=== PATIENT | male | born 1965 | race Caucasian/White ===

== ENCOUNTER 2017-05-07 09:45 | Emergency (ER) | payer MEDICAID ==
[~2017-05-07] VITALS: Ht 170.2 cm; Wt 94.4 kg
[~2017-05-07 09:45] MED LIST: BACT800T5 PO
[2017-05-07 09:51] VITALS: BP 166/91; PULSE 73; RESP 16; TEMP 97.4; O2SAT 100
[2017-05-07] MEDS ORDERED: KETOROLAC TROMETHAMINE 30 MG/ML (IVP) VIAL IV PUSH ONE (10:30)
[2017-05-07] MEDS ORDERED: CLINDAMYCIN 600 MG PREMIX 50 ML IV ONE (10:30)
[2017-05-07 10:51] LABS: AUTOMATED NEUTROPHIL # 5.2 TH/MM3 (1.8-7.7); BASOPHIL % 0.4 % (0.0-2.0); EOSINOPHIL # 0.2 TH/MM3 (0-0.4); EOSINOPHIL % 2.8 % (0.0-4.0); HEMATOCRIT 50.5 % (39.0-51.0); LYMPH % 29.6 % (9.0-44.0); LYMPHOCYTE # 2.5 TH/MM3 (1.0-4.8); MEAN CELL VOLUME 93.7 FL (80.0-100.0); MEAN CORPUSCULAR HEMOGLOBIN 33.3 PG (27.0-34.0); MEAN CORPUSCULAR HGB CONC 35.5 % (32.0-36.0); MONO % 7.3 % (0.0-8.0); NEUT % 59.9 % (16.0-70.0); PLATELET COUNT 231 TH/MM3 (150-450); RED BLOOD COUNT 5.39 MIL/MM3 (4.50-5.90); RED CELL DISTRIBUTION WIDTH 13.4 % (11.6-17.2); WHITE BLOOD COUNT 8.5 TH/MM3 (4.0-11.0)
[2017-05-07 10:52] LABS: HEMO FLAGS DIFF FINAL
[2017-05-07 10:56] LABS: POTASSIUM 4.4 MEQ/L (3.5-5.1)
[2017-05-07 10:59] LABS: BICARBONATE 24.9 MEQ/L (21.0-32.0)
--- NOTE | 2017-05-07 11:05 | RADRPT ---
EXAM DATE/TIME: 05/07/2017 10:37 [place] COMPARISON: No previous studies available for comparison. INDICATIONS : Right foot pain; No known injury. MEDICAL HISTORY : None. SURGICAL HISTORY : None. ENCOUNTER: Initial ACUITY: 3 days PAIN SCORE: 10/10 LOCATION: Right dorsal surface; foot. FINDINGS: There is an acute minimally displaced fracture involving the base of the right fifth proximal phalanx with involvement of the articular surface. CONCLUSION: Acute minimally displaced fracture involving the base of the right fifth proximal phalanx with involv ement of the articular surface. Yohan Taylor MD on May 07, 2017 at 11:01 Board Certified Radiologist. This report was verified electronically.
--- NOTE | 2017-05-07 11:25 | PD ---
HPI Chief Complaint: Edema Time Seen by Provider: 10:20 Travel History International Travel<30 days: No Contact w/Intl Traveler<30days: No Traveled to known affect area: No History of Present Illness HPI 51yo M with no significant PMH presents to the ED with c/o right foot pain for a few days. Said he had swelling and redness on top of his foot. Denies any trauma or fall. Denies any fever, n/v, chest pain, sob, abdominal pain, focal weakness or numbness. He showed me a picture and the redness has actually improved. PFSH Past Medical History Blood Disorders: No Cancer: No Cardiomyopathy: No Cardiovascular Problems: No Diabetes: No Diminished Hearing: No Endocrine: No Gastrointestinal Disorders: No Genitourinary: No Hypertension: Yes (CONTROLLED BY DIET AND WEIGHT LOSS) Immune Disorder: No Musculoskeletal: No Neurologic: No Psychiatric: No Reproductive: No Respiratory: No Immunizations Current: No Tetanus Vaccination: < 5 Years Past Surgical History Abdominal Surgery: Yes (UMBILCIAL HERNIA REPAIR) AICD: No Cardiac Surgery: Yes (PT HAS A CARDIAC DEFIBRILLATOR IMPLANTED.) Coronary Artery Bypass Graft: Yes Insulin Pump: No Joint Replacement: No Pacemaker: No Other Surgery: No Social History Alcohol Use: No Tobacco Use: Yes (1 PACK CIG. DAY) Substance Use: No Allergies-Medications (Allergen,Severity, Reaction): Coded Allergies: penicillin G (Unverified Allergy, Mild, 05/07/17) Reported Meds & Prescriptions Reported Meds & Active Scripts Active No Active Prescriptions or Reported Medications Review of Systems Except as stated in HPI: all other systems reviewed are Neg Physical Exam Narrative GENERAL: 51yo M not in distress. SKIN: Focused skin assessment warm/dry. HEAD: Atraumatic. Normocephalic. EYES: Pupils equal and round. No scleral icterus. No injection or drainage. CARDIOVASCULAR: Regular rate and rhythm. No murmur appreciated. RESPIRATORY: No accessory muscle use. Clear to auscultation. Breath sounds equal bilaterally. GASTROINTESTINAL: Abdomen soft, non-tender, nondistended. MUSCULOSKELETAL: Right foot: +Edema and mild erythema on dorsum of foot. DP 2+ . Sensation intact. +TTP base of right fifth metatarsal. No open wounds. NEUROLOGICAL: Awake and alert. No obvious cranial nerve deficits. Motor grossly within normal limits. Normal speech. PSYCHIATRIC: Appropriate mood and affect; insight and judgment normal. Data Data Last Documented VS Vital Signs Date Time Temp Pulse Resp B/P (MAP) Pulse Ox O2 Delivery O2 Flow Rate FiO2 05/07/17 10:08 16 100 Room Air 05/07/17 09:51 97.4 73 166/91 (116) Orders Orders Foot, Limited (2vws) (05/07/17 ) Complete Blood Count With Diff (05/07/17 10:29) Basic Metabolic Panel (Bmp) (05/07/17 10:29) Clindamycin 600 Mg Premix (Cleocin 600 M (05/07/17 10:30) Ketorolac Inj (Toradol Inj) (05/07/17 10:30) Splint Or Brace Apply/Monitor (05/07/17 12:00) Crutches (05/07/17 12:00) Fiberglass Short Leg Splint Ad (05/07/17 ) Labs Laboratory Tests Test 05/07/17 10:30 White Blood Count 8.5 TH/MM3 Red Blood Count 5.39 MIL/MM3 Hemoglobin 17.9 GM/DL Hematocrit 50.5 % Mean Corpuscular Volume 93.7 FL Mean Corpuscular Hemoglobin 33.3 PG Mean Corpuscular Hemoglobin Concent 35.5 % Red Cell Distribution Width 13.4 % Platelet Count 231 TH/MM3 Mean Platelet Volume 7.0 FL Neutrophils (%) (Auto) 59.9 % Lymphocytes (%) (Auto) 29.6 % Monocytes (%) (Auto) 7.3 % Eosinophils (%) (Auto) 2.8 % Basophils (%) (Auto) 0.4 % Neutrophils # (Auto) 5.2 TH/MM3 Lymphocytes # (Auto) 2.5 TH/MM3 Monocytes # (Auto) 0.6 TH/MM3 Eosinophils # (Auto) 0.2 TH/MM3 Basophils # (Auto) 0.0 TH/MM3 CBC Comment DIFF FINAL Differential Comment Blood Urea Nitrogen 12 MG/DL Creatinine 0.67 MG/DL Random Glucose 180 MG/DL Calcium Level 9.0 MG/DL Sodium Level 139 MEQ/L Potassium Level 4.4 MEQ/L Chloride Level 106 MEQ/L Carbon Dioxide Level 24.9 MEQ/L Anion Gap 8 MEQ/L Estimat Glomerular Filtration Rate 125 ML/MIN MDM Medical Decision Making Medical Screen Exam Complete: Yes Emergency Medical Condition: Yes Differential Diagnosis Cellulitis vs. fracture Narrative Course 51yo M with right foot pain and swelling. Denies any trauma but has had pain in base of fifth metatarsal for 1 week. Denies any fever, nausea or vomiting. Labs reviewed, no leukocytosis. BMP unremarkable. Xray right foot showed acute minimally displaced fracture involving base of right fifth proximal phalanx with involvement of the articular surface. Pt given 1st dose of clindamycin and toradol. Pain is improved and pt placed in a posterior splint and given crutches. Pt is to follow up with podiatry today or tomorrow. Diagnosis Primary Impression: Closed fracture of phalanx of right fifth toe Qualified Codes: S92.501A - Displaced unspecified fracture of right lesser toe (s), initial encounter for closed fracture Referrals: Martha Hudson DPM 1 day Acute minimally displaced fracture base of right fifth proximal phalanx. Patient Instructions: General Instructions Departure Forms: Tests/Procedures Additional Instructions: Please call podiatry and follow up with their clinic today or tomorrow. Return to the ED if symptoms worsen. Med/Other Pt SpecificInfo: Prescription(s) given Scripts Acetaminophen (Tylenol) 325 Mg Tab 650 MG PO Q6H Y for PAIN SCALE 1 TO 4, #20 TAB 0 Refills Prov: Zena Rivera DO 05/07/17 Clindamycin (Clindamycin) 300 Mg Cap 300 MG PO Q6H for Infection for 7 Days, #28 CAP 0 Refills Prov: Zena Rivera DO 05/07/17 Disposition: 01 DISCHARGE HOME Condition: Stable Zena Rivera DO May 07, 2017 11:25
[2017-05-07] MEDS ORDERED: CLIN300C5 PO (12:41)
[2017-05-07] MEDS ORDERED: TYLE325T PO (12:41)
[2017-05-07 12:42] VITALS: TEMP 98.3
== END 2017-05-07 12:47 | disposition home or self-care (01) ==
LOC: PHED 09:45
DX: S92.501A Displaced unspecified fracture of right lesser toe(s), initial encounter for closed fracture (principal); I10 Essential (primary) hypertension; F17.200 Nicotine dependence, unspecified, uncomplicated; X58.XXXA Exposure to other specified factors, initial encounter
CPT/HCPCS: 29515; 73620; 80048; 85025; 96374; 96375; 99284; E0113; J1885